=== PATIENT | male | born 1980 | race Caucasian/White ===

== ENCOUNTER 2017-01-25 17:59 | Emergency (ER) | payer OTHER | END 2017-01-25 20:00 | disposition home or self-care (01) | LOC: ER1 17:59 | DX: K05.219 Aggressive periodontitis, localized, unspecified severity (principal); K02.9 Dental caries, unspecified; E11.9 Type 2 diabetes mellitus without complications; F17.210 Nicotine dependence, cigarettes, uncomplicated; Z88.0 Allergy status to penicillin; Z79.84 Long term (current) use of oral hypoglycemic drugs | CPT/HCPCS: 99282 ==

== ENCOUNTER → 2017-02-11 | Outpatient (CLI) | payer OTHER ==
[2017-02-11 15:15] LABS: RED BLOOD COUNT 5.35 M/UL (4.20-5.50); WHITE BLOOD COUNT 7.6 K/UL (4.5-11.0)
[2017-02-11 16:13] LABS: BUN/CREATININE RATIO 11 (0-10)
== END ==
LOC: LAB 14:43
PROVIDERS: Family Medicine
DX: E11.65 Type 2 diabetes mellitus with hyperglycemia (principal)
CPT/HCPCS: 80053; 80061; 82043; 82570; 85025

== ENCOUNTER → 2017-03-06 | Outpatient (CLI) | payer OTHER | LOC: MRI 14:15 | DX: M54.16 Radiculopathy, lumbar region (principal); M51.37 Other intervertebral disc degeneration, lumbosacral region; M99.53 Intervertebral disc stenosis of neural canal of lumbar region; M99.54 Intervertebral disc stenosis of neural canal of sacral region | CPT/HCPCS: 72148 ==

== ENCOUNTER → 2021-01-16 | Outpatient (CLI) | payer OTHER ==
[~2021-01-16] MED LIST: AMARYL4 MG PO; ASPIRIN81 MG PO; ATORVASTATIN CA20 MG PO; AUGMENTIN 875-1 EACH PO; FENOFIBRATE145 MG PO; GLUCOPHAGE1000 MG PO; LANTUS INS100 UTS/M1 SC; LEVAQUIN750 MG PO; PAXIL 20 MG TAB20 MG PO; PERCOCET 5-3251 EACH PO; PRAVACHOL40 MG PO; PRINIVIL20 MG PO; TRAZODONE HCL100 MG PO
[2021-01-16 12:12] LABS: HEMOGLOBIN 17.4 gm/dl (14.0-17.5); RED BLOOD COUNT 5.76 M/UL (4.20-5.50)
== END ==
LOC: LAB 11:18
PROVIDERS: Physician Assistant Medical
DX: K92.1 Melena (principal)
CPT/HCPCS: 82728; 83540; 83550; 85027

== ENCOUNTER → 2021-12-24 | Outpatient (CLI) | payer OTHER ==
[2021-12-25 07:11] LABS: FOLATE (FOLIC ACID), SERUM 19.1 ng/mL (>3.0)
[2021-12-25 10:12] LABS: VITAMIN D, 25-HYDROXY 11.4 ng/mL (30.0-100.0)
== END ==
LOC: LAB 12:27
PROVIDERS: Podiatrist Foot & Ankle Surgery
DX: G60.8 Other hereditary and idiopathic neuropathies (principal); R25.2 Cramp and spasm
CPT/HCPCS: 36415; 82607; 82746; 84207; 84425